=== PATIENT | female | born 1950 | race Caucasian/White ===

== ENCOUNTER 2016-12-05 12:51 | Emergency (ER) | payer MEDICARE, OTHER ==
--- NOTE | ~2016-12-05 | CR63 ---
[facility] A Service of [facility] RADIOLOGY TEXT RESULTS PATIENT: KONG ENGLISH LOCATION: SED : 54 UNIT #: [id number] AGE: [address]: Ismael Gonzáles SEX: F ORDER DR: [id number] [address] [address] [id number] E MR#: [id number] Acc #: [id number] NAME: KONG ENGLISH : 1950 SEX: F STUDY DATE/TIME: 12/05/2016 12:16 UNIT: SED ROOM: STUDY DESCRIPTION: CR Chest 2 View Attending Physician: Ismael Gonzáles P.A.-C. Referring Physician: Ismael Gonzáles P.A.-C. Ordering Physician: Ismael Gonzáles P.A.-C. Primary Care Physician: Ben Zuñiga M.D. MEDICAL IMAGING REPORT This report is preliminary unless electronic signature is present. EXAM PA and lateral chest DATE 12/05/2016 HISTORY Chest pain with cough and congestion for 1 week. COMPARISON PA and lateral chest 11/29/2016. FINDINGS Lungs are hyperinflated and emphysematous. No acute airspace disease is seen. Heart size is within normal limits. No pleural effusion or pneumothorax is identified. Presumed cholecystectomy changes in the right upper quadrant of the abdomen. IMPRESSION 1. Pulmonary hyperinflation suggesting emphysematous change. No acute findings or significant change compared to 11/29/2016. Dictated by... Mari Henderson M.D. THIS IS AN ELECTRONICALLY VERIFIED REPORT Mari Henderson M.D. at 12/07/2016 12:05 AM King/yari TD: 12/05/2016 14:53 JOB #: [id number] [facility] A Service of [facility] RADIOLOGY TEXT RESULTS PATIENT: KONG ENGLISH LOCATION: SED : 54 UNIT #: [id number] AGE: [address]: Ismael Gonzáles PAC SEX: F ORDER DR: MEDICAL IMAGING REPORT Page 1 of 1
[~2016-12-05 12:51] MED LIST: ACYCLOVIR PO; ADVAIR INHALER INH; ALBUTEROL17 GM INH; ALPRAZOLAM PO; AMOXICILLIN PO; AUGMENTIN PO; CELEXA PO; CITALOPRAM PO; CLARITIN10 MG PO; COMBIVENT INH14.7 GM INH; FISH OIL 1,0001 CAP PO; LIPITOR PO; MONTELUKAST PO; MUCINEX DM1 TAB.SR . PO; MUCINEX100 MG/5 M PO; OMEPRAZOLE PO; OMNICEF300 MG PO; PROMETHAZINE D118 ML PO; TAMIFLU75 M1 PO; VENTOLIN INHALER INH; WELCHOL PO
== END 2016-12-05 13:43 | disposition home or self-care (01) ==
LOC: SED 12:51
DX: J40 Bronchitis, not specified as acute or chronic (principal); J44.9 Chronic obstructive pulmonary disease, unspecified; K21.9 Gastro-esophageal reflux disease without esophagitis; F17.200 Nicotine dependence, unspecified, uncomplicated
CPT/HCPCS: 71020; 87651; 94640; 99283

== ENCOUNTER 2017-04-23 12:26 | Emergency (ER) | payer MEDICARE, OTHER ==
--- NOTE | ~2017-04-23 | CR72 ---
[facility]. [facility] A Service of [facility] & [facility] RADIOLOGY TEXT RESULTS PATIENT: KONG ENGLISH LOCATION: SED : 54 UNIT #: [id number] AGE: [address]: Sarai Aguirre SEX: F ORDER DR: [id number] [address] [address] [id number] E MR#: [id number] Acc #: [id number] NAME: KONG ENGLISH : 1950 SEX: F STUDY DATE/TIME: 04/23/2017 14:43 UNIT: SED ROOM: STUDY DESCRIPTION: CR Chest Single View Portable Attending Physician: Sarai Aguirre Pa-C Ordering Physician: Sarai Aguirre Pa-C Primary Care Physician: Ben Zuñiga M.D. MEDICAL IMAGING REPORT This report is preliminary unless electronic signature is present. EXAM Chest, single view, dated 04/23/17. COMPARISON Chest, 2 views, dated 12/05/16. HISTORY Cough and congestion for 2 weeks. FINDINGS Single view of the chest was obtained. No acute cardiopulmonary disease. Lungs are well aerated. Heart is of normal size. Bones do not demonstrate any significant abnormality. Dictated by... Delfin Matthews M.D. THIS IS AN ELECTRONICALLY VERIFIED REPORT Delfin Matthews M.D. at 04/24/2017 2:51 PM CPR/pc TD: 04/24/2017 06:23 JOB #: [id number] MEDICAL IMAGING REPORT Page 1 of 1
== END 2017-04-23 15:52 | disposition home or self-care (01) ==
LOC: SED 12:26
DX: J20.9 Acute bronchitis, unspecified (principal); J44.9 Chronic obstructive pulmonary disease, unspecified; Z90.49 Acquired absence of other specified parts of digestive tract; F17.200 Nicotine dependence, unspecified, uncomplicated; Z88.8 Allergy status to other drugs, medicaments and biological substances; Z79.899 Other long term (current) drug therapy
CPT/HCPCS: 71010; 94640; 99283